=== PATIENT | male | born 1985 | race Two or more races ===

== ENCOUNTER 2017-03-20 22:53 | Emergency (ER) | payer SELFPAY ==
[~2017-03-20] VITALS: Ht 170.2 cm; Wt 72.5 kg
[2017-03-20 23:20] VITALS: Ht 170.2 cm; Wt 72.5 kg
[2017-03-20] MEDS ORDERED: CEPH-443 PO (23:42)
--- NOTE | 2017-03-20 23:42 | ERD ---
ER Documentation Chief Complaint Date/Time DATE: 03/20/17 TIME: 23:40 Chief Complaint fell today at 0300 hit head on stairs, no KO. Lac to right eyebrow HPI This is a 31-year-old male fell today at 3 AM and his head on the stairs. No loss consciousness there is a laceration of the right eyebrow that it is now over 20 hours old. He said he did not come in earlier because he was sleeping off his drinking. No focal neurological complaints. No change in visual acuity appear ROS All systems reviewed and are negative except as per history of present illness. Allergies Allergies: Coded Allergies: No Known Allergy (Unverified , 03/20/17) PMhx/Soc Hx Alcohol Use: Yes (last night) Hx Substance Use: No Hx Tobacco Use: No Smoking Status: Never smoker Physical Exam Vitals Vital Signs Date Time Temp Pulse Resp B/P Pulse Ox O2 Delivery O2 Flow Rate FiO2 03/20/17 23:20 98.3 111 18 123/71 96 Physical Exam Const: [] Head: Atraumatic Eyes: Normal Conjunctiva ENT: Normal External Ears, Nose and Mouth. Neck: Full range of motion..~ No meningismus. Resp: Clear to auscultation bilaterally Cardio: Regular rate and rhythm, no murmurs Abd: Soft, non tender, non distended. Normal bowel sounds Skin: Macerated laceration on the right eyebrow and periorbital ridge. No bony deformity noted. Back: No midline or flank tenderness Ext: No cyanosis, or edema Neur: Awake and alert Psych: Normal Mood and Affect Procedures/MDM Medical decision-makin-year-old male with an old laceration that is over 20 hours old. The wound was cleaned. Steri-Strips were applied. Will heal by secondary intention given the length of time since initial injury. Return in 2 days for wound check. Departure Diagnosis: Primary Impression: Laceration Condition: Stable ANGÉLICA LAUGHLIN Mar 20, 2017 23:42
== END 2017-03-21 00:07 | disposition home or self-care (01) ==
LOC: E/R 22:53
DX: S01.111A Laceration without foreign body of right eyelid and periocular area, initial encounter (principal); W10.9XXA Fall (on) (from) unspecified stairs and steps, initial encounter; Y92.9 Unspecified place or not applicable
CPT/HCPCS: 99283

== ENCOUNTER 2017-10-16 00:38 | Emergency (ER) | END 2017-10-16 04:13 | disposition home or self-care (01) ==

== ENCOUNTER 2018-03-05 20:55 | Emergency (ER) | END 2018-03-05 23:13 | disposition home or self-care (01) ==